=== PATIENT | female | born 1955 | race Caucasian/White ===

== ENCOUNTER 2023-11-29 11:29 | Emergency (ER) | payer MEDICARE, SELFPAY ==
[2023-11-29 11:32] VITALS: BP 184/90; PULSE 82; RESP 18; TEMP 36.9; O2SAT 97; BMI 25.6
--- NOTE | 2023-11-29 11:39 | DI.RAD.S_ITS ---
PROCEDURE: XR CHEST 2V INDICATIONS: cough, wheezing TECHNIQUE: 2 views of the chest were acquired. COMPARISON: None. FINDINGS: Surgical changes and devices: None. Lungs and pleura: Lungs are clear. No pleural effusions or pneumothorax. Mediastinum: The cardiac contours are within normal limits. The aorta demonstrates calcification and tortuosity. Bones and chest wall: No suspicious bony abnormalities. Age-appropriate bony degenerative changes are seen. Accentuated thoracic kyphosis is seen. Soft tissues appear unremarkable. IMPRESSION: No acute cardiopulmonary abnormality is seen. No focal infiltrates are seen. Dictated by: Mario Maki M.D. on 11/29/2023 at 11:04 Approved by: Mario Maki M.D. on 11/29/2023 at 11:05
--- NOTE | 2023-11-29 12:04 | PC.NURSE ---
Pt reports having a headache earlier in the week, and currently denies any pain. Pt states she is worried she may have pneumonia. When patient starts coughing, she is having difficulty stopping and reports not being able to get a full breath along with anxiety about catching her breath. Pt reports taking prozac for anxiety. Cough does not produce sputum.
[2023-11-29 12:24] LABS: Influenza A - CEPHEID Flu A NEGATIVE (NEGATIVE); Influenza B - CEPHEID Flu B NEGATIVE (NEGATIVE); Respiratory Syncytial Virus POSITIVE (Negative)
[2023-11-29 12:38] VITALS: BP 154/82; PULSE 76; RESP 20; TEMP 36.8; O2SAT 99
[2023-11-29 13:20] LABS: COVID-19 CEPHEID 4-PLEX PCR Negative (Negative)
[2023-11-29 13:44] VITALS: BP 171/78; PULSE 73; RESP 22; O2SAT 98
--- NOTE | 2023-11-29 13:47 | ED.URI ---
HPI - URI/Sore Throat <Maricel Hartmann PA-C - Last Filed: 11/29/23 13:53> General Chief Complaint: Upper Respiratory Symptoms Stated Complaint: Deep cough/ sob with a panic attack Time Seen by Provider: 11/29/23 11:48 Source: patient Mode of arrival: Ambulatory History of Present Illness HPI Narrative: 67-year-old female presents to the ED with 5 days of persistent cough. Patient states that she is having frequent and persistent coughing spells where she has a hard time catching her breath, resulting in her feeling very anxious. Patient denies fever, chills, chest pain, nausea, vomiting, diarrhea. Patient states that she was exposed to her grand kids who had colds. Related Data Previous Rx's Medication Instructions Recorded benzonatate 200 mg capsule 200 mg PO TID PRN cough #30 caps 11/29/23 codeine 10 mg-guaifenesin 100 mg/5 10 ml PO Q4-6H PRN cough #473 mL 11/29/23 mL oral liquid Allergies Allergy/AdvReac Type Severity Reaction Status Date / Time No Known Drug Allergies Allergy Verified 11/29/23 11:32 Review of Systems <Maricel Hartmann PA-C - Last Filed: 11/29/23 13:53> Constitutional Constitutional: Denies chills, Denies fatigue, Denies fever(s), Denies frequent falls, Denies lethargy and Denies weakness Eyes Eyes: Denies change in vision, Denies eye discharge, Denies irritation and Denies loss of vision ENT Ears, Nose, Mouth, and Throat: Denies change in voice, Denies dizziness, Denies neck pain, Denies sore throat and Denies throat swelling Cardiovascular Cardiovascular: Denies chest pain, Denies irregular heart rhythm, Denies lightheadedness, Denies palpitations, Denies dyspnea, Denies dyspnea on exertion and Denies orthopnea Respiratory Respiratory: Reports cough, Denies dyspnea, Denies dyspnea on exertion and Denies wheezing Gastrointestinal Gastrointestinal: Denies abdominal pain, Denies change in bowel habits, Denies diarrhea, Denies nausea and Denies vomiting Musculoskeletal Musculoskeletal: Denies neck pain and Denies numbness Integumentary/Breasts Skin/Breast: Denies pruritus, Denies erythema, Denies rash and Denies wounds Neurologic Neurologic: Denies behavioral changes, Denies confusion, Denies dizziness, Denies frequent falls, Denies loss of vision, Denies numbness and Denies weakness Psychiatric Psychiatric: Denies anxiety, Denies behavioral changes, Denies confusion, Denies depression, Denies homicidal ideation and Denies suicidal ideation Endocrine Endocrine: Denies fatigue, Denies flushing and Denies palpitations Hematologic/Lymphatic Hematologic/Lymphatic: Denies easy bruising Allergic/Immunologic Allergic/Immunologic: Denies urticaria, Denies throat swelling and Denies wheezing Patient History <Maricel Hartmann PA-C - Last Filed: 11/29/23 13:53> Social History Smoking Status: Never smoker Smoking Status: Never smoker alcohol intake frequency: 0-2 drinks per day Substance Use Type: does not use Exam <Maricel Hartmann PA-C - Last Filed: 11/29/23 13:53> Narrative Exam Narrative: Const General:?cooperative, healthy appearing and comfortable HENMT Head:?normal to inspection Ears:?hearing grossly normal bilaterally Nose:?external nose normal Face and sinus:?normal facial exam and sinuses nontender Mouth:?oral mucosae normal Throat:?posterior oropharynx normal Eyes General:?appearance normal, both eyes and all related structures Neck Neck:?normal visual inspection and no lymphadenopathy noted Resp Effort & Inspection:?normal respiratory effort Auscultation:?clear to auscultation bilaterally Cardio Rate:?regular rate Rhythm:?regular rhythm Neuro General:?patient alert, patient awake and patient oriented x3 Initial Vital Signs Initial Vital Signs: Vital Signs Temperature 98.5 F 11/29/23 11:32 Pulse Rate 82 11/29/23 11:32 Respiratory Rate 18 11/29/23 11:32 Blood Pressure 184/90 H 11/29/23 11:32 Pulse Oximetry 97 11/29/23 11:32 Oxygen Delivery Method Room Air 11/29/23 11:32 <Sofya Broussard DO - Last Filed: 11/30/23 13:27> Initial Vital Signs Initial Vital Signs: Vital Signs Temperature 98.5 F 11/29/23 11:32 Pulse Rate 82 11/29/23 11:32 Respiratory Rate 18 11/29/23 11:32 Blood Pressure 184/90 H 11/29/23 11:32 Pulse Oximetry 97 11/29/23 11:32 Oxygen Delivery Method Room Air 11/29/23 11:32 Course <Maricel Hartmann PA-C - Last Filed: 11/29/23 13:53> Orders Ordered: ED Orders 11/29/23 11:39 XR chest 2V Stat 11/29/23 11:42 Covid-19 + FLU A/B + RSV - PCR Stat Vital Signs Vital signs: Vital Signs - 8 hr 11/29/23 11:32 11/29/23 12:38 11/29/23 13:44 Temperature 98.5 F 98.3 F Pulse Rate 82 76 73 Respiratory Rate 18 20 22 Blood Pressure 184/90 H 154/82 H 171/78 H Pulse Oximetry 97 99 98 Oxygen Delivery Method Room Air Room Air Room Air <Sofya Broussard DO - Last Filed: 11/30/23 13:27> Orders Ordered: ED Orders 11/29/23 11:39 XR chest 2V Stat 11/29/23 11:42 Covid-19 + FLU A/B + RSV - PCR Stat Vital Signs Vital signs: Vital Signs - 8 hr 11/29/23 11:32 11/29/23 12:38 11/29/23 13:44 Temperature 98.5 F 98.3 F Pulse Rate 82 76 73 Respiratory Rate 18 20 22 Blood Pressure 184/90 H 154/82 H 171/78 H Pulse Oximetry 97 99 98 Oxygen Delivery Method Room Air Room Air Room Air MDM - URI/Sore Throat <Maricel Hartmann PA-C - Last Filed: 11/29/23 13:53> Lab Data Labs: Lab Results 11/29/23 Range/Units 11:42 SARS-CoV-2 (PCR) Negative (Negative) Influenza A (RT-PCR) Flu a negative (NEGATIVE) Influenza B (RT-PCR) Flu b negative (NEGATIVE) RSV (PCR) Positive A (Negative) MDM Narrative Medical decision making narrative: 67-year-old female presents to the ED with 5 days of persistent cough. Concern for upper respiratory infection versus pneumonia versus other. Obtained chest x-ray and respiratory panel. Chest x-ray without acute findings. Respiratory panel was positive for RSV. Discussed findings with patient. Prescribed codeine with guaifenesin and Tessalon Perles for cough. Recommend good hydration. Recommend follow-up with PCP. ED return precautions discussed with patient. Patient verbalized understanding. Medical records reviewed: Yes <Sofya Broussard DO - Last Filed: 11/30/23 13:27> Lab Data Labs: Lab Results 11/29/23 Range/Units 11:42 SARS-CoV-2 (PCR) Negative (Negative) Influenza A (RT-PCR) Flu a negative (NEGATIVE) Influenza B (RT-PCR) Flu b negative (NEGATIVE) RSV (PCR) Positive A (Negative) Discharge Plan Departure Patient Disposition: Home Clinical Impression: Respiratory syncytial virus (RSV) Instructions: DI for Respiratory Syncytial Virus -- Adults Activity Restrictions/Additional Instructions: You were evaluated in the ED today for a cough. You tested positive for RSV, which is a viral upper respiratory infection. As with all viral infections, it will run its course with symptoms such as fever and cough. You are being prescribed a cough syrup and Tessalon Perles for the cough. You may take Tylenol and ibuprofen for aches and pains. Please stay well hydrated. Please follow-up with your PCP as soon as possible. Return to the ED if you have worsening symptoms, chest pain, shortness of breath. Prescriptions: New codeine-guaifenesin 10-100 mg/5 mL liquid 10 ml PO Q4-6H PRN (Reason: cough) Qty: 473 0RF benzonatate 200 mg capsule 200 mg PO TID PRN (Reason: cough) Qty: 30 0RF Stand Alone Forms: Patient Portal/API ED Sign-out <Sofya Broussard DO - Last Filed: 11/30/23 13:27> Cosign ED Attending Cosignature Attestation: I was available for consultation.
== END 2023-11-29 13:47 | disposition home or self-care (01) ==
PROVIDERS: Emergency Medicine; Emergency Provider Student in an Organized Health Care Education/Training Program
DX: J98.8 Other specified respiratory disorders (principal); B97.4 Respiratory syncytial virus as the cause of diseases classified elsewhere
CPT/HCPCS: 0241U; 71046; 99283